=== PATIENT | female | born 1950 | race Two or more races ===

== ENCOUNTER 2018-12-09 16:20 | Emergency (ER) | payer OTHER, MEDICAID ==
[~2018-12-09] VITALS: Ht 30.5 cm; Wt 0.5 kg
[~2018-12-09 16:20] MED LIST: CHOL20004; COLCPOW2 PO; FOLI1TAB6 PO; HYDR200T36 PO; LORA-655 PO; OMEP20TA44 PO
[2018-12-09 18:31] LABS: Basophils # (auto) 0.1 uL; Basophils % (auto) 2.1 % (0.0-2.0); Eosinophils # (auto) 0.1 uL; Eosinophils % (auto) 1.3 % (0.0-7.0); Hematocrit 42.6 % (36.0-46.0); Hemoglobin 14.3 g/dL (12.2-16.2); Lymphocytes # (auto) 1.5 uL; Lymphocytes % (auto) 32.8 % (10.0-50.0); Mean Corpuscular Hemoglobin 30.5 pg (28.0-32.0); Mean Corpuscular Hgb Conc. 33.6 g/dL (32.0-36.0); Mean Corpuscular Volume 90.8 fL (80.0-100.0); Monocytes # (auto) 0.3 uL; Monocytes % (auto) 6.9 % (0.0-12.0); Neutrophils # (auto) 2.5 uL; Neutrophils % (auto) 56.9 % (37.0-80.0); Nucleated Red Blood Cells % 0.1 %; Platelet Count (auto) 101 10^3/uL (140-450); Red Blood Cells 4.69 10^6/uL (4.0-5.20); Red Cell Distribution Width 14.7 % (11.8-14.3); White Blood Cell 4.5 10^3/uL (4.4-10.8)
[2018-12-09 18:36] LABS: Albumin 3.7 g/dL (3.4-5.0); Calcium 8.8 mg/dL (8.5-10.1); Potassium 4.4 mmol/L (3.5-5.1)
[2018-12-09 18:39] LABS: Bilirubin, Total 0.9 mg/dL (0.2-1.0); Total Protein 7.1 g/dL (6.4-8.2)
[2018-12-09] MEDS ORDERED: SODIUM CHLORIDE 0.9% 1,000 ML IV ONE (19:00)
[2018-12-09] MEDS ORDERED: ONDANSETRON HCL 4 MG/2 ML VIAL IV ONE (19:00)
[2018-12-09] MEDS ORDERED: IOHEXOL 300 MG/ML 100ML BOTTLE IJ ONE (19:02)
[2018-12-09 19:24] LABS: Urine Bacteria FEW /hpf (None Seen); Urine Blood Negative /uL (Negative); Urine WBC 6 /hpf (0 - 5)
[2018-12-09 21:32] VITALS: BP 142/80
== END 2018-12-09 21:40 | disposition home or self-care (01) ==
LOC: ER 16:20
DX: N39.0 Urinary tract infection, site not specified (principal); J45.909 Unspecified asthma, uncomplicated; I10 Essential (primary) hypertension; Z87.891 Personal history of nicotine dependence; Z90.710 Acquired absence of both cervix and uterus; Z88.8 Allergy status to other drugs, medicaments and biological substances; Z79.899 Other long term (current) drug therapy
CPT/HCPCS: 36415; 74177; 80053; 81001; 82150; 83605; 83690; 85025; 99284; J7030; Q9967

== ENCOUNTER 2019-08-31 13:49 | Emergency (ER) | payer OTHER, MEDICAID ==
[~2019-08-31] VITALS: Ht 160 cm; Wt 87.1 kg
[~2019-08-31 13:49] MED LIST changes: +ALBUAER3 IN; +ARTISOL13 EACHEYE; +CETI10TA80 PO
[2019-08-31 14:58] LABS: Basophils # (auto) 0 uL; Basophils % (auto) 0.3 % (0.0-2.0); Eosinophils # (auto) 0 uL; Eosinophils % (auto) 0.3 % (0.0-7.0); Hematocrit 45.6 % (36.0-46.0); Hemoglobin 15.2 g/dL (12.2-16.2); Lymphocytes # (auto) 1.8 uL; Lymphocytes % (auto) 26.7 % (10.0-50.0); Mean Corpuscular Hemoglobin 31.1 pg (28.0-32.0); Mean Corpuscular Hgb Conc. 33.3 g/dL (32.0-36.0); Mean Corpuscular Volume 93.2 fL (80.0-100.0); Monocytes # (auto) 0.4 uL; Monocytes % (auto) 5.8 % (0.0-12.0); Neutrophils # (auto) 4.5 uL; Neutrophils % (auto) 66.9 % (37.0-80.0); Platelet Count (auto) 115 10^3/uL (140-450); Red Cell Distribution Width 13.8 % (11.8-14.3); White Blood Cell 6.7 10^3/uL (4.4-10.8)
[2019-08-31 15:17] LABS: Albumin 3.6 g/dL (3.4-5.0); Anion Gap 4 (5-15); Blood Urea Nitrogen 15 mg/dL (7-18); Calcium 9.3 mg/dL (8.5-10.1); Carbon Dioxide 28 mmol/L (21-32); Chloride 107 mmol/L (98-107); Glucose 84 mg/dL (74-106); Potassium 3.8 mmol/L (3.5-5.1); Sodium 139 mmol/L (136-145)
[2019-08-31 15:23] LABS: Alanine Aminotransferase 43 U/L (13-56); Alkaline Phosphatase 97 U/L (45-117); Aspartate Aminotransferase 24 U/L (15-37); BUN/Creatinine Ratio 19.5; GFR African American 96 mL/min; GFR Non-African American 79 mL/min; Total Protein 7.2 g/dL (6.4-8.2)
[2019-08-31 16:19] VITALS: BP 145/75
== END 2019-08-31 16:20 | disposition home or self-care (01) ==
LOC: ER 13:49
DX: J20.9 Acute bronchitis, unspecified (principal); R07.89 Other chest pain; E78.5 Hyperlipidemia, unspecified; I10 Essential (primary) hypertension; Z88.1 Allergy status to other antibiotic agents; Z87.891 Personal history of nicotine dependence; Z90.710 Acquired absence of both cervix and uterus
CPT/HCPCS: 36415; 71046; 80053; 84484; 85025; 93005

== ENCOUNTER 2020-06-01 19:58 | Emergency (ER) | payer OTHER, MEDICAID ==
[~2020-06-01] VITALS: Ht 160 cm; Wt 82.6 kg
[2020-06-01 20:56] LABS: Basophils # (auto) 0 10 ^3/uL (0-0.2); Basophils % (auto) 0.2 % (0.0-2.0); Eosinophils # (auto) 0 10 ^3/uL (0-0.8); Eosinophils % (auto) 0.1 % (0.0-7.0); Hematocrit 43.4 % (36.0-46.0); Hemoglobin 14.7 g/dL (12.2-16.2); Lymphocytes # (auto) 0.7 10 ^3/uL (0.4-5.4); Lymphocytes % (auto) 6.5 % (10.0-50.0); Mean Corpuscular Hemoglobin 31.2 pg (28.0-32.0); Mean Corpuscular Hgb Conc. 33.8 g/dL (32.0-36.0); Mean Corpuscular Volume 92.2 fL (80.0-100.0); Monocytes # (auto) 0.4 10 ^3/uL (0-1.3); Monocytes % (auto) 3.1 % (0.0-12.0); Neutrophils # (auto) 10.3 10 ^3/uL (1.6-8.6); Neutrophils % (auto) 90.1 % (37.0-80.0); Nucleated Red Blood Cells % 0.1 %; Platelet Count (auto) 161 10^3/uL (140-450); Red Blood Cells 4.71 10^6/uL (4.0-5.20); Red Cell Distribution Width 14.6 % (11.8-14.3); White Blood Cell 11.4 10^3/uL (4.4-10.8)
[2020-06-01 21:00] LABS: Urine Bacteria FEW /hpf (None Seen); Urine Blood Negative /uL (Negative); Urine Specific Gravity 1.012 (1.001-1.035); Urine WBC 7 /hpf (0 - 5)
[2020-06-01 21:16] LABS: BUN/Creatinine Ratio 22.4; Potassium 3.8 mmol/L (3.5-5.1)
[2020-06-01 21:20] LABS: Total Protein 7.2 g/dL (6.4-8.2)
[2020-06-02 04:00] VITALS: BP 153/73
[2020-06-02] MEDS ORDERED: HYDROcodone-ACET 5/325MG TAB PO ONE (05:45)
[2020-06-02] MEDS ORDERED: ONDANSETRON ODT 4 MG TAB PO ONE (05:45)
== END 2020-06-02 06:13 | disposition home or self-care (01) ==
LOC: ER 20:00
DX: N39.0 Urinary tract infection, site not specified (principal); J45.909 Unspecified asthma, uncomplicated; E78.5 Hyperlipidemia, unspecified; I10 Essential (primary) hypertension; Z87.891 Personal history of nicotine dependence; Z90.710 Acquired absence of both cervix and uterus; Z88.1 Allergy status to other antibiotic agents
CPT/HCPCS: 36415; 74176; 80053; 81001; 85025; 93005; 99285; Q0162

== ENCOUNTER 2020-06-17 15:15 | Emergency (ER) | payer OTHER, MEDICAID ==
[~2020-06-17] VITALS: Ht 160 cm; Wt 85.7 kg
[2020-06-17 17:28] LABS: Basophils # (auto) 0 10 ^3/uL (0-0.2); Basophils % (auto) 0.6 % (0.0-2.0); Eosinophils # (auto) 0 10 ^3/uL (0-0.8); Eosinophils % (auto) 0.7 % (0.0-7.0); Hematocrit 43.7 % (36.0-46.0); Hemoglobin 14.5 g/dL (12.2-16.2); Lymphocytes # (auto) 1.4 10 ^3/uL (0.4-5.4); Lymphocytes % (auto) 28.4 % (10.0-50.0); Mean Corpuscular Hemoglobin 30.8 pg (28.0-32.0); Mean Corpuscular Hgb Conc. 33.1 g/dL (32.0-36.0); Mean Corpuscular Volume 93.1 fL (80.0-100.0); Monocytes # (auto) 0.3 10 ^3/uL (0-1.3); Monocytes % (auto) 5.8 % (0.0-12.0); Neutrophils # (auto) 3.1 10 ^3/uL (1.6-8.6); Neutrophils % (auto) 64.5 % (37.0-80.0); Nucleated Red Blood Cells % 0.1 %; Platelet Count (auto) 123 10^3/uL (140-450); Red Blood Cells 4.69 10^6/uL (4.0-5.20); Red Cell Distribution Width 14.9 % (11.8-14.3); White Blood Cell 4.8 10^3/uL (4.4-10.8)
[2020-06-17 17:44] LABS: Albumin 3.8 g/dL (3.4-5.0); Anion Gap 3 (5-15); Blood Urea Nitrogen 21 mg/dL (7-18); Calcium 9.2 mg/dL (8.5-10.1); Carbon Dioxide 28 mmol/L (21-32); Chloride 110 mmol/L (98-107); Glucose 85 mg/dL (74-106); Magnesium 2.5 mg/dL (1.6-2.6); Potassium 4.1 mmol/L (3.5-5.1); Sodium 141 mmol/L (136-145)
[2020-06-17 17:58] LABS: Alanine Aminotransferase 44 U/L (13-56); Alkaline Phosphatase 93 U/L (45-117); Aspartate Aminotransferase 26 U/L (15-37); BUN/Creatinine Ratio 25.9; GFR African American 90 mL/min; GFR Non-African American 75 mL/min
[2020-06-17 20:29] VITALS: BP 128/62
[2020-06-17 21:06] LABS: Urine Bacteria NONE SEEN /hpf (None Seen); Urine Blood Negative /uL (Negative); Urine Mucus FEW (None Seen); Urine Specific Gravity 1.019 (1.001-1.035); Urine WBC 4 /hpf (0 - 5)
== END 2020-06-17 22:16 | disposition home or self-care (01) ==
LOC: ER 15:15
DX: R07.89 Other chest pain (principal); I10 Essential (primary) hypertension; N30.00 Acute cystitis without hematuria; F41.9 Anxiety disorder, unspecified; M19.90 Unspecified osteoarthritis, unspecified site; J45.909 Unspecified asthma, uncomplicated; E78.5 Hyperlipidemia, unspecified; Z87.440 Personal history of urinary (tract) infections; Z87.891 Personal history of nicotine dependence; Z90.710 Acquired absence of both cervix and uterus; Z79.899 Other long term (current) drug therapy; Z88.1 Allergy status to other antibiotic agents; Z88.6 Allergy status to analgesic agent
CPT/HCPCS: 36415; 71045; 80053; 81001; 83735; 84484; 85025

== ENCOUNTER 2021-04-17 17:44 | Emergency (ER) | payer OTHER, MEDICAID ==
[~2021-04-17] VITALS: Ht 160 cm; Wt 83.5 kg
[2021-04-17 18:59] VITALS: BP 128/63
[2021-04-17] MEDS ORDERED: TETRACAINE HCL 0.5% OPTH(EYE) SOLN 4ML EACHEYE ONE (21:15)
[2021-04-17] MEDS ORDERED: TETRACAINE HCL 0.5% OPTH(EYE) SOLN 4ML LEFTEYE ONE (21:15)
== END 2021-04-17 22:08 | disposition home or self-care (01) ==
LOC: ER 17:44
DX: H53.15 Visual distortions of shape and size (principal); E78.5 Hyperlipidemia, unspecified; I10 Essential (primary) hypertension; R41.82 Altered mental status, unspecified; Z90.710 Acquired absence of both cervix and uterus; Z87.891 Personal history of nicotine dependence; Z86.73 Personal history of transient ischemic attack (TIA), and cerebral infarction without residual deficits; Z88.5 Allergy status to narcotic agent
CPT/HCPCS: 70450

== ENCOUNTER 2021-06-04 21:36 | Emergency (ER) | payer OTHER, MEDICAID ==
[~2021-06-04] VITALS: Ht 160 cm; Wt 81.6 kg
[~2021-06-04 21:36] MED LIST changes: +CETI10TA2 PO; -CETI10TA80 PO
[2021-06-04 23:08] VITALS: BP 168/89
[2021-06-05] MEDS ORDERED: PERCOT PO (03:08)
[2021-06-05] MEDS ORDERED: ONDA-144 PO (03:08)
== END 2021-06-05 03:58 | disposition home or self-care (01) ==
LOC: ER 21:36
DX: S82.144A Nondisplaced bicondylar fracture of right tibia, initial encounter for closed fracture (principal); I10 Essential (primary) hypertension; J45.909 Unspecified asthma, uncomplicated; M10.9 Gout, unspecified; Z90.710 Acquired absence of both cervix and uterus; Z87.891 Personal history of nicotine dependence; Z79.899 Other long term (current) drug therapy; Z88.8 Allergy status to other drugs, medicaments and biological substances; W18.39XA Other fall on same level, initial encounter; Y93.89 Activity, other specified; Y92.89 Other specified places as the place of occurrence of the external cause; Y99.8 Other external cause status
CPT/HCPCS: 29505; 73700

== ENCOUNTER 2021-09-28 16:23 | Emergency (ER) | payer OTHER, MEDICAID ==
[~2021-09-28] VITALS: Ht 160 cm; Wt 83.0 kg
[~2021-09-28 16:23] MED LIST changes: +ONDA-144 PO; +PERCOT PO
[2021-09-28 16:25] VITALS: BP 189/96
[2021-09-28] MEDS ORDERED: IBUP100S11 GT (20:12)
== END 2021-09-28 20:39 | disposition home or self-care (01) ==
LOC: ER 16:23
DX: S61.213A Laceration without foreign body of left middle finger without damage to nail, initial encounter (principal); I10 Essential (primary) hypertension; J45.909 Unspecified asthma, uncomplicated; M10.9 Gout, unspecified; Z87.891 Personal history of nicotine dependence; Z90.710 Acquired absence of both cervix and uterus; Z79.899 Other long term (current) drug therapy; Z88.8 Allergy status to other drugs, medicaments and biological substances; W23.0XXA Caught, crushed, jammed, or pinched between moving objects, initial encounter; Y93.89 Activity, other specified; Y92.89 Other specified places as the place of occurrence of the external cause; Y99.8 Other external cause status
CPT/HCPCS: 73130

== ENCOUNTER → 2021-10-20 | Outpatient (CLI) | payer OTHER, MEDICAID ==
[~2021-10-20] MED LIST changes: +IBUP100S11 GT
== END | disposition home or self-care (01) ==
LOC: XYW 09:28
PROVIDERS: ATTEND Psychiatry & Neurology Neurology
DX: I08.1 Rheumatic disorders of both mitral and tricuspid valves (principal); G45.9 Transient cerebral ischemic attack, unspecified; I63.9 Cerebral infarction, unspecified; H34.8111 Central retinal vein occlusion, right eye, with retinal neovascularization
CPT/HCPCS: 93306

== ENCOUNTER → 2024-11-27 | Outpatient (CLI) | payer OTHER, MEDICAID ==
[~2024-11-27] MED LIST changes: +FOLI-119 PO; -FOLI1TAB6 PO
[2024-11-27 12:42] LABS: Urine Bacteria FEW /hpf (None Seen); Urine Blood Negative /uL (Negative); Urine Clarity Clear (Clear); Urine Color Light-Yellow (Yellow); Urine Protein, UAD Negative (Negative); Urine Squamous Epithelial Cell FEW /hpf (<5); Urine Urobilinogen Normal (Negative); Urine WBC 1 /HPF (0-5)
== END | disposition home or self-care (01) ==
LOC: LAB 11:44
PROVIDERS: ATTEND Urology
DX: R33.9 Retention of urine, unspecified (principal)
CPT/HCPCS: 81001; 87086

== ENCOUNTER 2025-07-02 09:50 | Inpatient (IN) | payer MEDICARE, MEDICAID ==
[~2025-07-02] VITALS: Ht 160 cm; Wt 86.2 kg
[2025-07-02 10:18] LABS: Hematocrit 41.1 % (36.0-46.0); Hemoglobin 13.6 g/dL (12.2-16.2); Mean Corpuscular Hemoglobin 30.6 pg (28.0-32.0); Mean Corpuscular Volume 92.3 fL (80.0-100.0); Nucleated Red Blood Cells % 0.0 %
--- NOTE | 2025-07-02 10:19 | ED.PDOC ---
HPI Comments 74 year old female with PMHx anxiety, arthritis, asthma, Gout, HLD, HTN, presents to the ED with a chief complaint of chest pain onset today around 01:00. Patient states she began experiencing LT sided chest pain, described as a pressure sensation, rates pain 6/10, as well as shortness of breath. She did not take HTN medication this morning. Denies fever, chills, nausea, vomiting, diarrhea, headache, dizziness, dysuria, hematuria, numbness/tingling, weakness. No other symptoms or modifying factors present at this time. Chief Complaint: Chest Pain Time Seen by MD: 10:10 Primary Care Provider: Valeria Reviewed Notes: Medications, Allergies Allergies: Coded Allergies: Tramadol (Verified Allergy, Unknown, 01/25/17) Home Meds Active Scripts Ibuprofen (Motrin) 100 Mg/5 Ml Ud, 400 MG GT TID PRN for 7 Days, #30 UNIT Prov:ANGELINA ELLER MD 09/28/21 Ondansetron (Zofran) 4 Mg Tab, 4 MG PO BID for 5 Days, #10 MG Prov:DOMI HILL MD 06/05/21 Oxycodone W/ Acetaminophen (Percocet 5/325MG) 1 Tab Tb, 1 TAB PO BID, #10 TAB Prov:DOMI HILL MD 06/05/21 Reported Medications Artificial Tear Solution (ARTIFICIAL TEARS) Tears Brandi, 1 DROP EACHEYE QID, #30 ML 5 Refills 02/18/19 Albuterol Sulfate (VENTOLIN MDI) 90 Mcg Ih, 90 MCG IN 02/18/19 Cetirizine Hcl (Kls Aller-Marija) 10 Mg Tab, 5 MG PO DAILY, TAB 02/18/19 Lorazepam (Ativan) 0.5 Mg Tab, 1 TAB PO DAILY, #30 TAB 01/25/17 Colchicine (Colchicine) Pow, 0.6 MG PO DAILY, MG 01/25/17 Folic Acid (Folic Acid) 1 Mg Tab, 1 MG PO DAILY, #90 08/10/14 Cholecalciferol (Vitamin D) 2,000 Unit Tab, #60 08/10/14 Omeprazole ([facility]vs Omeprazole) 20 Mg Tab, 20 MG PO DAILY, #30 08/10/14 Hydroxychloroquine Sulfate (Hydroxychloroquine Sulfat) 200 Mg Tab, 200 MG PO BID, #60 08/10/14 Information Source: Patient Mode of Arrival: Ambulatory Severity: Moderate Timing: Hours Duration: Since onset Prehospital treatment: None Location: Chest (L) Radiation: No Radiation Quality: Pressure Onset: At Rest Cardiac Risk Factors: Hyperlipidemia, HTN PE Risk Factors: None History of: None Associated Signs and Symptoms: SOB Past Medical History PAST MEDICAL HISTORY: Anxiety, Arthritis, Asthma, Cancer, Gout, High Lipids, HTN, UTI'S Surgical History: Hysterectomy Surgical History (Other): RT knee surgery SHOWER DOORS AND PANELS FABRICATOR History: No Pertinent SHOWER DOORS AND PANELS FABRICATOR History Family History Family History: Reviewed,noncontributory to illness, Family hx of DM, Family hx of Cancer Social History Smoker: Quit Greater Than 1 Year Alcohol: Occasionally Drugs: Denies Drug Use Lives In: Home Constitutional: denies: chills, diaphoresis, fatigue, fever, malaise, sweats, weakness, others EENTM: denies: blurred vision, double vision, ear bleeding, ear discharge, ear drainage, ear pain, ear ringing, eye pain, eye redness, hearing loss, mouth pain, mouth swelling, nasal discharge, nose bleeding, nose congestion, nose pain, photophobia, tearing, throat pain, throat swelling, voice changes, others Respiratory: reports: shortness of breath; denies: cough, hemoptysis, orthopnea, SOB at rest, SOB with excertion, stridor, wheezing, others Cardiovascular: reports: chest pain; denies: dizzy spells, diaphoresis, Dyspnea on exertion, edema, irregular heart beat, left arm pain, lightheadedness, palpitations, PND, syncope, others Gastrointestinal: denies: abdomen distended, abdominal pain, blood streaked bowels, constipated, diarrhea, dysphagia, difficulty swallowing, hematemesis, melena, nausea, poor appetite, poor fluid intake, rectal bleeding, rectal pain, vomiting, others Genitourinary: denies: abnormal vagina bleeding, burning, dyspareunia, dysuria, flank pain, frequency, hematuria, incontinence, pain, , vagina discharge, urgency, others Neurological: denies: dizziness, fainting, headache, left sided numbness, left sided weakness, numbness, paresthesia, pre-existing deficit, right sided numbness, right sided weakness, seizure, speech problems, tingling, tremors, weakness, others Musculoskeletal: denies: back pain, gout, joint pain, joint swelling, muscle pain, muscle stiffness, neck pain, others Integumetry: denies: bruises, change in color, change in hair/nails, dryness, laceration, lesions, lumps, rash, wounds, others Allergic/Immunocompromised: denies: Difficulty Healing, Frequent Infections, Hives, Itching, others Hematologic/Lymphatic: denies: anemia, blood clots, easy bleeding, easy bruising, swollen glands, others Endocrine: denies: excessive hunger, excessive sweating, excessive thirst, excessive urination, flushing, intolerance to cold, intolerance to heat, unexplained weight gain, unexplained weight loss, others Psychiatric: denies: anxiety, bipolar disorder, depression, hopeless, panic disorder, schizophrenia, sleepless, suicidal, others All Other Systems: Reviewed and Negative Physical Exam General Appearance: Moderate Distress HEENT: Normal ENT Inspection, Pharynx Normal, TMs Normal Neck: Full Range of Motion, Non-Tender, Normal, Normal Inspection Respiratory: Chest Non-Tender, Lungs Clear, No Accessory Muscle Use, No Respiratory Distress, Normal Breath Sounds Cardiovascular: No Edema, No JVD, No Murmur, No Gallop, Normal Peripheral Pulses, Regular Rate/Rhythm Breast Exam: Deferred Gastrointestinal: No Organomegaly, Non Tender, No Pulsatile Mass, Normal Bowel Sounds, Soft Genitalia: Deferred Pelvic: Deferred Rectal: Deferred Extremities: No calf tenderness, Normal capillary refill, Normal inspection, Normal range of motion, Non-tender, No pedal edema Musculoskeletal : Apperance: Normal Neurologic: Alert, rn travel II-XII nml as Tested, No Motor Deficits, Normal Affect, Normal Mood, No Sensory Deficits Cerebellar Function: Normal Reflexes: Normal Skin: Dry, Normal Color, Warm Lymphatic: No Adenopathy EKG EKG : Pulse Rate (adult): 86 [place]: Normal Cardiac Rhythm: NSR Block: None ST: Nonsp Was a procedure done? Was a procedure done?: No CP Differential Dx Differential Diagnosis: Angina, MO, WPW Differential Diagnosis: CHF X-Ray, Labs, Meds, VS Vital Signs Date Time Temp Pulse Resp B/P (MAP) Pulse Ox O2 Delivery O2 Flow Rate FiO2 07/02/25 11:34 58 07/02/25 11:34 97.5 58 18 176/71 (106) 98 97.5 07/02/25 09:57 98.1 59 16 158/53 98 98.1 07/02/25 09:57 64 Lab Test 07/02/25 11:19 07/02/25 10:04 Range/Units Troponin I High Sensitivity 7 6 </=34 ng/L White Blood Count 3.0 L 4.4-10.8 10^3/uL Red Blood Count 4.45 4.0-5.20 10^6/uL Hemoglobin 13.6 12.2-16.2 g/dL Hematocrit 41.1 36.0-46.0 % Mean Corpuscular Volume 92.3 80.0-100.0 fL Mean Corpuscular Hemoglobin 30.6 28.0-32.0 pg Mean Corpuscular Hemoglobin Concent 33.2 32.0-36.0 g/dL Red Cell Distribution Width 15.0 H 11.8-14.3 % Platelet Count 108 L 140-450 10^3/uL Mean Platelet Volume 8.6 6.9-10.8 fL Neutrophils (%) (Auto) 52.1 37.0-80.0 % Lymphocytes (%) (Auto) 37.2 10.0-50.0 % Monocytes (%) (Auto) 8.4 0.0-12.0 % Eosinophils (%) (Auto) 1.5 0.0-7.0 % Basophils (%) (Auto) 0.8 0.0-2.0 % Neutrophils # (Auto) 1.6 1.6-8.6 10 ^3/uL Lymphocytes # (Auto) 1.1 0.4-5.4 10 ^3/uL Monocytes # (Auto) 0.3 0-1.3 10 ^3/uL Eosinophils # (Auto) 0 0-0.8 10 ^3/uL Basophils # (Auto) 0 0-0.2 10 ^3/uL Nucleated Red Blood Cells 0.0 % Sodium Level 141 136-145 mmol/L Potassium Level 4.8 3.5-5.1 mmol/L Chloride Level 106 98-107 mmol/L Carbon Dioxide Level 25 20-31 mmol/L Anion Gap 10 5-15 Blood Urea Nitrogen 11 9-23 mg/dL Creatinine 0.83 0.550-1.02 mg/dL Glomerular Filtration Rate Calc 74 >90 mL/min BUN/Creatinine Ratio 13.3 10.0-20.0 Serum Glucose 113 H 74-106 mg/dL Calcium Level 9.7 8.7-10.4 mg/dL Current Medications Medications (Trade) Dose Ordered Sig/Trena Route Start Time Stop Time Status Last Admin Aspirin 162 mg ONCE ONCE PO 07/02/25 10:30 07/02/25 10:31 DC 07/02/25 11:38 IMPRESSION: No acute cardiopulmonary disease. Hep-Lock was established The patient was given aspirin here in the emergency department's The CBC is within normal limits The chemistry panel is within normal limits The 1st troponin level is negative The 2nd troponin level is negative We are getting a cardiology consult in the patient is being admitted with a diagnosis of acute myocardial ischemia Images Reviewed?: Images reviewed and evaluated by me Time of 1ST Reevaluation: 10:40 Reevaluation 1ST: Unchanged Patient Education/Counseling: Diagnosis, Treatment, Prognosis Family Education/Counseling: No Family Present SEPSIS Sepsis Screen Date sepsis recognized/suspect: Jul 02, 2025 Time Sepsis recognized/suspect: 956 Recent Procedure: No On Antibiotic Therapy: No Respiratory Rate >20: No Heart Rate >90: No Temp<36 C (96.8 F) or >38.3 C: No SBP <90 or MAP <65 mmHG: No New Acute Mental Status Change: No Is the patient on CPAP, BIPAP,: No Physician Orders Troponin-I Hs (07/02/25 12:54) Electrocardigram (07/02/25 10:54) Electrocardigram (07/02/25 12:54) Heplock Iv (07/02/25 10:16) Chest Two Views Routine (07/02/25 10:16) Vital Signs Date Time Temp Pulse Resp B/P (MAP) Pulse Ox O2 Delivery O2 Flow Rate FiO2 07/02/25 11:34 58 07/02/25 11:34 97.5 58 18 176/71 (106) 98 97.5 07/02/25 09:57 98.1 59 16 158/53 98 98.1 07/02/25 09:57 64 Laboratory Tests Test 07/02/25 10:04 White Blood Count 3.0 10^3/uL (4.4-10.8) L Medications Medications Dose Ordered Sig/Trena Route Start Time Stop Time Status Last Admin Dose Admin Aspirin 162 mg ONCE ONCE PO 07/02/25 10:30 07/02/25 10:31 DC 07/02/25 11:38 Departure 1 Departure Time of Disposition: 12:04 Impression: Primary Impression: Acute chest pain Additional Impression: Acute myocardial ischemia Disposition: 09 ADMITTED INPATIENT Admit to: Tele Condition: Fair Critical Care Note Critical Care Time?: No Stability Stability form required: Yes Unstable for transfer: Telemetry monitoring (Telemetry monitoring required), ED Physician Assesment (Clinical assesment) Heart Score Heart Score: Heart Score Response (Comments) Value History N/A 0 EKG N/A 0 Age N/A 0 Risk Factors N/A 0 Troponin N/A 0 Total 0 I personally scribed for ROSEMARY BOX MD ([email or web address]) on 07/02/25 at 10:19. Electronically submitted by Hanny Ford ([email or web address]). I personally scribed for ROSEMARY BOX MD ([email or web address]) on 07/02/25 at 11:12. Electronically submitted by Hanny Ford ([email or web address]). ROSEMARY BOX MD Jul 02, 2025 10:19
[2025-07-02 10:24] LABS: Chloride 106 mmol/L (98-107); Potassium 4.8 mmol/L (3.5-5.1); Sodium 141 mmol/L (136-145)
[2025-07-02 10:25] LABS: Anion Gap 10 (5-15); Calcium 9.7 mg/dL (8.7-10.4); Carbon Dioxide 25 mmol/L (20-31)
[2025-07-02 10:30] LABS: BUN/Creatinine Ratio 13.3 (10.0-20.0); Blood Urea Nitrogen 11 mg/dL (9-23)
[2025-07-02 10:31] LABS: Glucose 113 mg/dL (74-106)
--- NOTE | 2025-07-02 10:32 | ECG ---
[facility] Test Date: 2025-07-02 Test Time: 09:57:52 Pat Name: MAISHA ABDULLAHI Department: ED Room: [address] [place] [address] Gender: F Cone Operator: PHILLIP : 1950 Requested By: ROSEMARY BOX Order Number: [id number] Reading MD: Dagoberto Burton Measurements Intervals [place] Rate: 64 P: 74 [place]: 161 QRS: 0 QRSD: 95 T: 75 QT: 439 QTc: 453 Interpretive Statements Sinus rhythm Low voltage, precordial leads Borderline T wave abnormalities Electronically Signed On 07-02-2025 18:02:03 PST by Dagoberto Burton Please click the below link to view image of tracing.
--- NOTE | 2025-07-02 10:53 | DVH ---
XY CHEST TWO VIEWS ROUTINE CLINICAL HISTORY: CP COMPARISON: None TECHNIQUE: Frontal and lateral view of the chest was obtained FINDINGS: Lines and Tubes: None Lungs: No focal consolidation. Low lung volumes. Pleura: No effusion. No pneumothorax. Cardiomediastinal contours: Unremarkable. Atherosclerotic vascular calcifications of the thoracic aorta are noted. Bones: No acute osseous abnormality. IMPRESSION: No acute cardiopulmonary disease.
[2025-07-02] MEDS: hydrALAZINE HCL 20 MG/ML VL IV ONE (12:52)
[2025-07-02] MEDS ORDERED: ONDANSETRON HCL 4 MG/2 ML VIAL IV PRN (14:45)
[2025-07-02] MEDS ORDERED: NITROGLYCERIN 0.4 MG SL TAB SL PRN (14:45)
[2025-07-02] MEDS ORDERED: MORPHINE SULFATE INJ 2 MG/ml SYRG IV PRN ×2 (14:45)
[2025-07-02] MEDS ORDERED: ATORVASTATIN 20 MG TAB PO ONE (14:45)
--- NOTE | 2025-07-02 14:45 | ECG ---
[facility] Test Date: 2025-07-02 Test Time: 14:44:31 Pat Name: MAISHA ABDULLAHI Department: ED Room: [address] [place] [address] Gender: F Green Feed Attendant: ANNA : 1950 Requested By: ROSEMARY BOX Order Number: [id number] Reading MD: Dagoberto Burton Measurements Intervals [place] Rate: 65 P: 10 [place]: 119 QRS: 4 QRSD: 84 T: 42 QT: 399 QTc: 415 Interpretive Statements Sinus rhythm Borderline short AL interval Borderline T abnormalities, anterior leads Electronically Signed On 07-02-2025 18:02:21 PST by Dagoberto Burton Please click the below link to view image of tracing.
--- NOTE | 2025-07-02 14:48 | DVHHPRES ---
History of Present Illness Resident Creating Document: RD [facility]DLE[place] RESIDENT History of Present Illness Betty Salcedo is a 74-year-old female patient who presents to the ED with chief complaint of tightness in retrosternal chest pain which started at 10:00 p.m. on the day of her admission, worsens with breathing, palpation and lying flat, intensity 10/10 for 10 minutes, resolved spontaneously in functional class four. Patient has had these symptoms are different from her heartburn occasional symptoms. Denies any other associated symptoms. Past medical history: Hypertension, lupus, Sjogren, rheumatoid arthritis, osteoarthritis, essential tremor, two strokes in 2020, diverticulosis , osteoporosis, benign right breast tumor, completed stress test in 2021 due to palpitation (no diagnosis of arrhythmia) Surgical history: Right knee replacement, hysterectomy due to uterine fibroids, right lumpectomy Family history: Mother had breast cancer. Social history: Lives in [place] alone (next of kin sister). Denies tobacco, alcohol and other drug abuse Allergies: Tramadol, Home medication: Aspirin, artificial tear drops, cetirizine, colchicine, folic acid, cholecalciferol, omeprazole, hydrocodone Patient seen and examined at bedside. Currently has no new complaints. Palpated chest and elicited extreme pain. Past Medical History Per HPI Past Surgical History Per HPI Family History Per HPI Past Social History Per HPI Review of Systems Review of Systems Per HPI Allergies: Coded Allergies: Tramadol (Verified Allergy, Unknown, 01/25/17) Exam Vital Signs Vital Signs Date Time Temp Pulse Resp B/P (MAP) Pulse Ox O2 Delivery O2 Flow Rate FiO2 07/02/25 14:23 97.7 81 16 155/72 (99) 97 97.7 Exam Patient lying in bed, in no acute distress General: Lucid, afebrile, mucosae are moist Cardiovascular: Normal S1 and S2. No murmurs, gallops or rubs Respiratory: Normal ventilation mechanics. Clear lung sounds on auscultation Abdomen: Soft, nontender, no organomegaly, normal bowel sounds MSK/skin: Mobilizes 4 limbs. Skin is dry and warm. Presents tenderness on palpation sternum (10/10 pain) Neurological: Oriented in 3 spheres. No motor no sensitive deficits. Pupils are isocoric and reactive Labs/Xrays Labs Test 07/02/25 13:06 07/02/25 10:04 Range/Units Troponin I High Sensitivity 7 </=34 ng/L White Blood Count 3.0 L 4.4-10.8 10^3/uL Red Blood Count 4.45 4.0-5.20 10^6/uL Hemoglobin 13.6 12.2-16.2 g/dL Hematocrit 41.1 36.0-46.0 % Mean Corpuscular Volume 92.3 80.0-100.0 fL Mean Corpuscular Hemoglobin 30.6 28.0-32.0 pg Mean Corpuscular Hemoglobin Concent 33.2 32.0-36.0 g/dL Red Cell Distribution Width 15.0 H 11.8-14.3 % Platelet Count 108 L 140-450 10^3/uL Mean Platelet Volume 8.6 6.9-10.8 fL Neutrophils (%) (Auto) 52.1 37.0-80.0 % Lymphocytes (%) (Auto) 37.2 10.0-50.0 % Monocytes (%) (Auto) 8.4 0.0-12.0 % Eosinophils (%) (Auto) 1.5 0.0-7.0 % Basophils (%) (Auto) 0.8 0.0-2.0 % Neutrophils # (Auto) 1.6 1.6-8.6 10 ^3/uL Lymphocytes # (Auto) 1.1 0.4-5.4 10 ^3/uL Monocytes # (Auto) 0.3 0-1.3 10 ^3/uL Eosinophils # (Auto) 0 0-0.8 10 ^3/uL Basophils # (Auto) 0 0-0.2 10 ^3/uL Nucleated Red Blood Cells 0.0 % Sodium Level 141 136-145 mmol/L Potassium Level 4.8 3.5-5.1 mmol/L Chloride Level 106 98-107 mmol/L Carbon Dioxide Level 25 20-31 mmol/L Anion Gap 10 5-15 Blood Urea Nitrogen 11 9-23 mg/dL Creatinine 0.83 0.550-1.02 mg/dL Glomerular Filtration Rate Calc 74 >90 mL/min BUN/Creatinine Ratio 13.3 10.0-20.0 Serum Glucose 113 H 74-106 mg/dL Calcium Level 9.7 8.7-10.4 mg/dL SEPSIS Sepsis Screen Date sepsis recognized/suspect: Jul 02, 2025 Time Sepsis recognized/suspect: 0957 Recent Procedure: No On Antibiotic Therapy: No Respiratory Rate >20: No Heart Rate >90: No Temp<36 C (96.8 F) or >38.3 C: No SBP <90 or MAP <65 mmHG: No New Acute Mental Status Change: No Is the patient on CPAP, BIPAP,: No Physician Orders Electrocardigram (07/02/25 12:54) Heplock Iv (07/02/25 10:16) Chest Two Views Routine (07/02/25 10:16) Admit (07/02/25 14:45) Code Status (07/02/25 14:45) Acetaminophen Tablet (Tylenol Tablet) (07/02/25 14:45) Ondansetron Hcl (Zofran) (07/02/25 14:45) Complete Blood Count (07/03/25 04:00) Comprehensive Metabolic Panel (07/03/25 04:00) Cardiac Diet-2gna,Lofat,Lochol (07/02/25 Dinner) Echo 2d Mode Cardiac Dop (07/02/25 14:45) Morphine Sulfate Injection (07/02/25 14:45) Lovenox 40mg (07/03/25 10:00) Nitroglycerin Sublingual (Ntrostat Subli (07/02/25 14:45) Morphine Sulfate Injection (07/02/25 14:45) Oxygen By Nasal Cannula (07/02/25 14:45) Stat Ekg For Chest Pain (07/02/25 14:45) Notify Md Of Changes From Base (07/02/25 14:45) Senior Telecommunications Specialist For 24 Hours (07/02/25 14:45) Emergency Dysrhythmia Protocol (07/02/25 14:45) Rhythm Strips Once Every Shift (07/02/25 14:45) Aspirin Tablet (07/03/25 10:00) Atorvastatin (Lipitor) (07/02/25 22:00) Atorvastatin (Lipitor) (07/02/25 14:45) Vital Signs Date Time Temp Pulse Resp B/P (MAP) Pulse Ox O2 Delivery O2 Flow Rate FiO2 07/02/25 14:23 97.7 81 16 155/72 (99) 97 97.7 07/02/25 12:52 176/71 07/02/25 12:05 86 07/02/25 11:34 58 07/02/25 11:34 97.5 58 18 176/71 (106) 98 97.5 07/02/25 09:57 98.1 59 16 158/53 98 98.1 07/02/25 09:57 64 Laboratory Tests Test 07/02/25 10:04 White Blood Count 3.0 10^3/uL (4.4-10.8) L Medications Medications Dose Ordered Sig/Trena Route Start Time Stop Time Status Last Admin Dose Admin Aspirin 162 mg ONCE ONCE PO 07/02/25 10:30 07/02/25 10:31 DC 07/02/25 11:38 162 MG Hydralazine HCl 10 mg ONCE ONCE IV 07/02/25 12:30 07/02/25 12:31 DC 07/02/25 12:52 10 MG Assessment/Plan Assessment/Plan ASSESSMENT Rule out acute coronary syndrome Probable costochondritis Ruled out rib fracture Thrombocytopenia Leukopenia Lupus Sjogren Rheumatoid arthritis Osteoarthritis History of two CVAs Diverticulosis Essential tremor Osteoporosis History of benign right breast mass status post lumpectomy PLAN Troponin x3 negative. EKG shows sinus rhythm with no ST-elevation (low-voltage precordial leads). Pain is noncardiac. Ordered echocardiogram Ordered x-ray of ribs to rule out rib fracture Continue hydroxychloroquine Bicytopenia (leukopenia and thrombocytopenia) could be secondary to rheumatologic medication Goals of care discussed with patient for over 18 minutes: Full code status Discussed plan with Dr. Becerra, patient and nurses: Patient admitted to telemetry for further evaluation. Ordered complementary workup to rule out acute coronary syndrome (echocardiogram. Chest pain impresses noncardiac in etiology, ruled out costochondritis and rib fracture. Plan discussed with: Patient, Other (Nurses) My Orders Orders - RD MIDDLE[facility] RESIDENT Procedure Category Date Status Time Admit ADMIT 07/02/25 Transmitted 14:45 Code Status CODE 07/02/25 Transmitted 14:45 Acetaminophen Tablet PHA 07/02/25 Transmitted (Tylenol Tablet) 14:45 Ondansetron Hcl PHA 07/02/25 Transmitted (Zofran) 14:45 Complete Blood Count LAB 07/03/25 Verified 04:00 Comprehensive LAB 07/03/25 Verified Metabolic Panel 04:00 Cardiac DIET 07/02/25 Transmitted Diet-2gna,Lofat,Lochol Dinner Echo 2d Mode Cardiac US 07/02/25 Transmitted DOP 14:45 Morphine Sulfate PHA 07/02/25 Transmitted Injection 14:45 Lovenox 40mg PHA 07/03/25 Transmitted 10:[address] [facility] 07/02/25 Transmitted Sublingual (Ntrostat 14:45 Morphine Sulfate PHA 07/02/25 Transmitted Injection 14:45 Oxygen By Nasal RT 07/02/25 Transmitted Cannula 14:45 Stat Ekg For Chest [facility] 07/02/25 Transmitted Pain 14:45 Notify Of Changes [facility] 07/02/25 Transmitted From Base 14:45 Senior Telecommunications Specialist For [facility] 07/02/25 Transmitted 24 Hours 14:45 Emergency Dysrhythmia [facility] 07/02/25 Transmitted Protocol 14:45 Rhythm Strips Once [facility] 07/02/25 Transmitted Every Shift 14:[address] [facility] 07/03/25 Transmitted 10:00 Atorvastatin (Lipitor) [facility] 07/02/25 Transmitted 22:00 Atorvastatin (Lipitor) [facility] 07/02/25 Transmitted 14:45 Date of Service: Jul 02, 2025 Billing Provider: RUIZ BECERRA DO Common Visit Codes: 28313-[id number] INP/OBS CARE (HIGH) Secondary Visit Codes: [id number] CARE PLAN [address] [facility]DLE[place] RESIDENT Jul 02, 2025 14:48
[2025-07-02] MEDS ORDERED: IBUPROFEN 100MG/5ML ORAL SUSP 100 MG/5 ML UD GT PRN (15:00)
[2025-07-02 15:03] VITALS: BP 155/72; PULSE 81; RESP 16; TEMP 97.7; O2SAT 97
[2025-07-02 15:22] LABS: Alanine Aminotransferase 28.0 U/L (7-40); Albumin 4.0 g/dL (3.2-4.8); Total Protein 6.5 g/dL (5.7-8.2)
[2025-07-02 15:22] LABS: Magnesium 2.0 mg/dL (1.6-2.6); Triglycerides 86.0 mg/dL (< 150)
[2025-07-02 15:23] LABS: Alkaline Phosphatase 121.0 U/L (46-116); Bilirubin, Direct 0.2 mg/dL (<0.3); Bilirubin, Total 0.7 mg/dL (0.2-1.0)
[2025-07-02 15:24] LABS: Cholesterol 213.0 mg/dL (< 200); HDL Cholesterol 93.0 mg/dL (40-59)
[2025-07-02 15:26] LABS: INR 0.97 (0.9-1.15); Partial Thromboplastin Time 26.9 SEC (24.5-34.5); Prothrombin Time 10.3 sec (9.3-11.8)
--- NOTE | 2025-07-02 16:11 | ECG ---
[facility] Test Date: 2025-07-02 Test Time: 16:10:25 Pat Name: MAISHA ABDULLAHI Department: ED Room: [address] [place] [address] Gender: F Big Data Developer: arian : 1950 Requested By: ROSEMARY BOX Order Number: [id number] Reading MD: Dagoberto Burton Measurements Intervals [place] Rate: 73 P: 72 [place]: 159 QRS: -7 QRSD: 86 T: 30 QT: 394 QTc: 435 Interpretive Statements Sinus rhythm Low voltage, precordial leads Borderline repolarization abnormality Electronically Signed On 07-02-2025 18:02:36 PST by Dagoberto Burton Please click the below link to view image of tracing.
[2025-07-02] MEDS ORDERED: ALBUTEROL SULF HFA 90MCG INH 200DOSE IN SCH (18:00)
[2025-07-02] MEDS: ARTIFICIAL TEARS 15ml EACHEYE SCH (18:00)
[2025-07-02 18:12] VITALS: BP 159/54; PULSE 68; RESP 18; TEMP 98; O2SAT 97
[2025-07-02 18:38] VITALS: PULSE 59; RESP 12; O2SAT 96
[2025-07-02] MEDS: ALBUTEROL SULF 2.5 MG/0.5ML(0.5%) NEB SOLN NEB SCH (18:38)
[2025-07-02 18:43] VITALS: PULSE 60; RESP 12; O2SAT 100
[2025-07-02] MEDS ORDERED: COLCPOW2 PO (18:50)
[2025-07-02] MEDS ORDERED: ASPI-543 PO (18:50)
[2025-07-02] MEDS ORDERED: CHOL20007 PO (18:50)
[2025-07-02] MEDS ORDERED: BENA10TA93 PO (18:51)
[2025-07-02] MEDS ORDERED: PRIM50TA5 PO (18:51)
[2025-07-02 20:00] VITALS: PULSE 87; PULSE 93; RESP 14; O2SAT 100
[2025-07-02 21:00] VITALS: BP 161/85; PULSE 87; RESP 14; TEMP 98.6; O2SAT 100
[2025-07-02] MEDS: ACETAMINOPHEN 325 MG TAB PO PRN (21:13)
[2025-07-02] MEDS: ATORVASTATIN 20 MG TAB PO SCH (21:14)
[2025-07-02] MEDS ORDERED: PATIENTS OWN MEDICATION (Ondansetron (Zofran) 4 MG) PO SCH (22:00)
[2025-07-02] MEDS: BENAZEPRIL HCL 10 MG TAB PO ONE (22:57)
[2025-07-03] VITALS (15 sets, daily range): BP systolic 114–146; BP diastolic 64–81; PULSE 54–96; RESP 14–18; TEMP 97.4–98.2; O2SAT 93–100
[2025-07-03 06:52] LABS: Hematocrit 39.5 % (36.0-46.0); Hemoglobin 13.3 g/dL (12.2-16.2); Mean Corpuscular Hemoglobin 30.6 pg (28.0-32.0); Mean Corpuscular Volume 91.0 fL (80.0-100.0); Nucleated Red Blood Cells % 0.1 %
[2025-07-03 07:04] LABS: Alanine Aminotransferase 27 U/L (7-40); Albumin 3.9 g/dL (3.2-4.8); Alkaline Phosphatase 113 U/L (46-116); Anion Gap 10 (5-15); BUN/Creatinine Ratio 15.7 (10.0-20.0); Bilirubin, Total 0.9 mg/dL (0.2-1.0); Blood Urea Nitrogen 13 mg/dL (9-23); Calcium 9.4 mg/dL (8.7-10.4); Carbon Dioxide 25 mmol/L (20-31); Chloride 107 mmol/L (98-107); Glucose 81 mg/dL (74-106); Potassium 4.5 mmol/L (3.5-5.1); Sodium 142 mmol/L (136-145); Total Protein 6.1 g/dL (5.7-8.2)
--- NOTE | 2025-07-03 09:26 | DVH ---
EXAMINATION: XY RIBS BILATERAL INDICATION: Rule out rib fracture COMPARISON: XY CHEST TWO VIEWS ROUTINE on DOS: 07/02/25 TECHNIQUE: Frontal view of the chest and 3 views of the left ribs history FINDINGS: No focal consolidation, pleural effusion or significant pneumothorax. Normal cardiomediastinal silhouette. No displaced left rib fracture. IMPRESSION: No acute cardiopulmonary disease. No displaced left rib fracture.
[2025-07-03] MEDS: ENOXAPARIN SOD 40 MG/0.4 ML SYRINGE SC SCH (11:23)
[2025-07-03] MEDS: PANTOPRAZOLE 40 MG TAB PO SCH (11:24)
[2025-07-03] MEDS: FOLIC ACID 1 MG TAB PO SCH (11:24)
--- NOTE | 2025-07-03 16:38 | DVHDS2 ---
Discharge Summary Date of Admission Jul 02, 2025 at 14:45 Date of Discharge: Jul 03, 2025 Labs/Diagnostic Data: Laboratory Results Test 07/03/25 05:35 07/02/25 13:06 07/02/25 11:19 07/02/25 10:04 White Blood Count 3.7 10^3/uL (4.4-10.8) Red Blood Count 4.34 10^6/uL (4.0-5.20) Hemoglobin 13.3 g/dL (12.2-16.2) Hematocrit 39.5 % (36.0-46.0) Mean Corpuscular Volume 91.0 fL (80.0-100.0) Mean Corpuscular Hemoglobin 30.6 pg (28.0-32.0) Mean Corpuscular Hemoglobin Concent 33.6 g/dL (32.0-36.0) Red Cell Distribution Width 14.9 % (11.8-14.3) Platelet Count 111 10^3/uL (140-450) Mean Platelet Volume 9.4 fL (6.9-10.8) Neutrophils (%) (Auto) 48.2 % (37.0-80.0) Lymphocytes (%) (Auto) 38.5 % (10.0-50.0) Monocytes (%) (Auto) 11.5 % (0.0-12.0) Eosinophils (%) (Auto) 1.3 % (0.0-7.0) Basophils (%) (Auto) 0.5 % (0.0-2.0) Neutrophils # (Auto) 1.8 10 ^3/uL (1.6-8.6) Lymphocytes # (Auto) 1.4 10 ^3/uL (0.4-5.4) Monocytes # (Auto) 0.4 10 ^3/uL (0-1.3) Eosinophils # (Auto) 0 10 ^3/uL (0-0.8) Basophils # (Auto) 0 10 ^3/uL (0-0.2) Nucleated Red Blood Cells 0.1 % Sodium Level 142 mmol/L (136-145) Potassium Level 4.5 mmol/L (3.5-5.1) Chloride Level 107 mmol/L (98-107) Carbon Dioxide Level 25 mmol/L (20-31) Anion Gap 10 (5-15) Blood Urea Nitrogen 13 mg/dL (9-23) Creatinine 0.83 mg/dL (0.550-1.02) Glomerular Filtration Rate Calc 74 mL/min (>90) BUN/Creatinine Ratio 15.7 (10.0-20.0) Serum Glucose 81 mg/dL (74-106) Calcium Level 9.4 mg/dL (8.7-10.4) Total Bilirubin 0.9 mg/dL (0.2-1.0) Aspartate Amino Transferase (AST) 26 U/L (13-40) Alanine Aminotransferase (ALT) 27 U/L (7-40) Alkaline Phosphatase 113 U/L (46-116) Total Protein 6.1 g/dL (5.7-8.2) Albumin 3.9 g/dL (3.2-4.8) Prothrombin Time 10.3 sec (9.3-11.8) Prothrombin Time INR 0.97 (0.9-1.15) Activated Partial Thromboplast Time 26.9 SEC (24.5-34.5) Hemoglobin A1c 5.4 % A1C (<5.7) Troponin I High Sensitivity 7 ng/L (</=34) Vitamin B12 Level 501 pg/mL (211-911) Vitamin D 25-Hydroxy 52.7 ng/mL (30.0-100) Phosphorus Level 3.4 mg/dL (2.4-5.1) Magnesium Level 2.0 mg/dL (1.6-2.6) Triglycerides Level 86 mg/dL (< 150) Cholesterol Level 213 mg/dL (< 200) LDL Cholesterol 109 mg/dL (< 100) HDL Cholesterol 93 mg/dL (40-59) Thyroid Stimulating Hormone (TSH) 1.96 uIU/mL (0.55-4.78) Direct Bilirubin 0.2 mg/dL (<0.3) Other Laboratory Tests 07/03/25 05:35 Final Diagnosis/Problems List 1.Chest pain CA ruled out 2.Costochondritis 3. Hypertension 4. Lupus Discharge Disposition: Home SNF Discharge Will this Physician continue t: No Discharge Instruct/Medications Diet: Cardiac 2g Na,low cholest Activity: No Restrictions, As Tolerated Follow Up/Referral: Please follow up with the PCP in 1-2 weeks Follow upWith the Cardiology for outpatient stress test if indicated. Medications: Resume home medications. Scheduled Artificial Tear Solution (Artificial Tears), 1 DROP EACHEYE QID, (Reported) Aspirin (Aspir-Low), 81 MG PO DAILY, (Reported) Benazepril HCl (Benazepril Hydrochloride), 10 MG PO DAILY, (Reported) Cetirizine Hcl (Kls Aller-Marija), 5 MG PO DAILY, (Reported) Cholecalciferol (Vitamin D3), 1 TAB PO DAILY, (Reported) Colchicine (Colchicine), 0.6 MG PO DAILY, (Reported) Colchicine (Colchicine), 0.6 MG PO Q12HR, (Reported) Folic Acid (Folic Acid), 1 MG PO DAILY, (Reported) Hydroxychloroquine Sulfate (Hydroxychloroquine Sulfat), 200 MG PO BID, (Reported) Lorazepam (Ativan), 1 TAB PO DAILY, (Reported) Omeprazole (Cvs Omeprazole), 20 MG PO DAILY, (Reported) Ondansetron (Zofran), 4 MG PO BID Oxycodone W/ Acetaminophen (Percocet 5/325MG), 1 TAB PO BID Primidone (Mysoline Tablet), 50 MG PO HS, (Reported) Scheduled PRN Ibuprofen (Motrin), 400 MG GT TID PRN Miscellaneous Medications Albuterol Sulfate (Ventolin Mdi), 90 MCG IN, (Reported) Cholecalciferol (Vitamin D), (Reported) Discharge Statement: "Patient was advised to return to the ER or call 911 if any headaches, dizziness, shortness of breath, chest pain, abdominal pain, bleeding, fevers, or worsening of medical condition. Patient was counseled about treatment plan, medications, possible side effects, patientverbalized understanding. All questions were answered to the best of my ability. This discharge took greater then 30 minutes in planning, reviewing documentation, counseling the patient, and discussing with other team members." ASSESSMENT ASSESSMENT Assessment 1.Chest pain CA ruled out 2.Costochondritis 3. Hypertension 4. Lupus INNA RUIZ MD Jul 03, 2025 16:38
--- NOTE | 2025-07-03 17:45 | DVHSR ---
APPROVED REPORT EXAM: Two-dimensional and M-mode echocardiogram with Doppler and color Doppler. Blood Pressure: 131/73 mmHg INDICATION ACS RISK FACTORS Obesity: Height: 63, Weight: 182 DIMENSIONS LVDd 4.7 (3.8-5.7cm) LA (2D) 4.1 (1.9-4.0cm) Aortic Root 2.9 (2.0-3.7cm) LVDs 2.9 (2.5-4.0cm) LA (MM) (1.9-4.0cm) Aortic Cusp Exc 1.1 (1.5-2.0cm) EF (%) 60.0 (55-70%) Rt. Atrium 3.7 (1.9-4.0cm) Asc. Aorta cm IVSd 0.9 (0.7-1.1cm) RV (D) 3.2 (1.8-2.4cm) PWd 1.0 (0.7-1.1cm) Mitral Valve Mitral Mitral Stenosis E wave 0.77m/s MV Mean GR. mmHg A wave 0.84m/s MV Peak GR. mmHg E/A ratio 0.9 2D MVA cm2 DECEL Time 293ms PRESS 1/2 Time ms Aortic Valve Aortic Valve Aortic Stenosis V1 1.14m/s AO Mean GR. 7mmHg V2 1.70m/s AO Peak GR. 12mmHg LVOT Diameter 2.0 (1.8-2.4cm) Doppler LUCAS 2.11cm2 Pulmonic Valve V2 0.90m/s Tricuspid Valve TR Velocity 1.92m/s RVSP 21mmHg Conclusion Sinus rhythm. Aortic root enlargement. Mild left atrial enlargement. Mitral annular calcification thickening of the base of the posterior mitral leaflet. Good excursion of the leaflets. The tricuspid and pulmonic normal. Left ventricular function is preserved at 65% with normal RV function. Doppler reveals no significant regurgitant jets. Mild TR. No pericardial effusion masses or vegetations.
[2025-07-04] VITALS (14 sets, daily range): BP systolic 101–166; BP diastolic 55–87; PULSE 55–75; RESP 14–17; TEMP 36.6; O2SAT 92–100
--- NOTE | 2025-07-04 11:22 | DVHINCON2 ---
Date Seen: Jul 04, 2025 Referring Physician MD Sadi Reason for Consultation Chest pain History of Present Illness This is a 74-year-old female patient who presents to the emergency room with chief complaint of chest pain. The patient reports that the chest pain began at approximately 1:30 a.m. on the day of emergency room arrival while she was asleep. She describes it as unprovoked, intermittent, pressure-like in nature, left-sided and nonradiating. Associated symptoms include shortness of breath. The patient reports that she believed it was acid reflux so she took two Shae- [place] pills with no relief. She states that she fell back asleep and when she woke up again the pain was still present which prompted her to come to the emergency room for further evaluation. Initial twelve lead electrocardiogram reveals normal sinus rhythm without any significant ST segment changes. Serial troponin levels have been negative. Significant past medical history includes hypertension, dyslipidemia, lupus, rheumatoid and osteoarthritis, CVA x2, right eye partial blindness, asthma, and obesity. The patient reports undergoing a stress test approximately three years ago and has not followed up with a staff pharmacist hospital since then. Past Medical History Past medical history reviewed. No other significant than mentioned above. Past Surgical History Right knee replacement Hysterectomy Right breast lumpectomy Family History: Cancer G8 MOTHER (BREAST) FH: dementia G8 MOTHER Family history: Diabetes mellitus G8 BROTHER G8 SISTER Family History Family history reviewed. Social History Denies the use of tobacco, alcohol or illicit drugs. Allergies: Coded Allergies: Tramadol (Verified Allergy, Unknown, 01/25/17) Home Meds Active Scripts Ibuprofen (Motrin) 100 Mg/5 Ml Ud, 400 MG GT TID PRN for 7 Days, #30 UNIT Prov:ANGELINA ELLER MD 09/28/21 Ondansetron (Zofran) 4 Mg Tab, 4 MG PO BID for 5 Days, #10 MG Prov:DOMI HILL MD 06/05/21 Oxycodone W/ Acetaminophen (Percocet 5/325MG) 1 Tab Tb, 1 TAB PO BID, #10 TAB Prov:DOMI HILL MD 06/05/21 Reported Medications Primidone (MYSOLINE TABLET) 50 Mg Tb, 50 MG PO HS, TAB 07/02/25 Benazepril HCl (Benazepril Hydrochloride) 10 Mg Tab, 10 MG PO DAILY, TAB 07/02/25 Aspirin (Aspir-Low) 81 Mg Tab, 81 MG PO DAILY for 30 Days, MG 07/02/25 Colchicine (Colchicine) Pow, 0.6 MG PO Q12HR for 30 Days, MG 07/02/25 Cholecalciferol (VITAMIN D3) 2,000 Unit Tab, 1 TAB PO DAILY, #30 TAB 5 Refills 07/02/25 Artificial Tear Solution (ARTIFICIAL TEARS) Tears Brandi, 1 DROP EACHEYE QID, #30 ML 5 Refills 02/18/19 Albuterol Sulfate (VENTOLIN MDI) 90 Mcg Ih, 90 MCG IN 02/18/19 Cetirizine Hcl (Kls Aller-Marija) 10 Mg Tab, 5 MG PO DAILY, TAB 02/18/19 Lorazepam (Ativan) 0.5 Mg Tab, 1 TAB PO DAILY, #30 TAB 01/25/17 Colchicine (Colchicine) Pow, 0.6 MG PO DAILY, MG 01/25/17 Folic Acid (Folic Acid) 1 Mg Tab, 1 MG PO DAILY, #90 08/10/14 Cholecalciferol (Vitamin D) 2,000 Unit Tab, #60 08/10/14 Omeprazole (Cvs Omeprazole) 20 Mg Tab, 20 MG PO DAILY, #30 08/10/14 Hydroxychloroquine Sulfate (Hydroxychloroquine Sulfat) 200 Mg Tab, 200 MG PO BID, #60 08/10/14 Home Meds Home medications reviewed. Review of Systems Constitutional: No symptom reported Ears, Nose, & Throat: No symptom reported Eyes: No symptom reported Neurological: No symptoms reported Pulmonary/Respiratory: Shortness of breath Cardiovascular: Chest pain Gastrointestinal: No symptom reported Genitourinary: No symptom reported Musculoskeletal: No symptom reported Skin: No symptom reported Psychiatric: No symptom reported Endocrine: No symptom reported Hematologic/Lymphatic: No symptom reported Vital Signs Vital Signs Date Time Temp Pulse Resp B/P (MAP) Pulse Ox O2 Delivery O2 Flow Rate FiO2 07/04/25 09:00 98.1 67 17 123/66 (85) 97 98.1 07/04/25 08:00 Room Air* 0 21 Physical Exam General Appearance: Cooperative. Well-developed. Well-nourished. No acute distress. Pulmonary/Respiratory: Clear, bilateral breaths sounds. Cardiovascular/Chest: Regular rate and rhythm. Peripheral Pulses: 2+ Radial (R). 2+ Radial (L). 2+ Pedal (R). 2+ Pedal (L) Abdominal Exam: Normal bowel sounds. Ankle Exam: Negative ankle edema Lower extremities: Negative lower extremity edema Neuro/Mental Status: A/OX4, coherent. Thoughts/Psych: Normal thought pattern. Appropriate mood and affect. Good judgment and insight. Appearance: No acute distress. Skin Exam: Normal inspection. Normal color. Warm and dry. Labs/Diagnostic Data Labs Test 07/03/25 05:35 07/02/25 13:06 07/02/25 11:19 07/02/25 10:04 Range/Units White Blood Count 3.7 L 4.4-10.8 10^3/uL Red Blood Count 4.34 4.0-5.20 10^6/uL Hemoglobin 13.3 12.2-16.2 g/dL Hematocrit 39.5 36.0-46.0 % Mean Corpuscular Volume 91.0 80.0-100.0 fL Mean Corpuscular Hemoglobin 30.6 28.0-32.0 pg Mean Corpuscular Hemoglobin Concent 33.6 32.0-36.0 g/dL Red Cell Distribution Width 14.9 H 11.8-14.3 % Platelet Count 111 L 140-450 10^3/uL Mean Platelet Volume 9.4 6.9-10.8 fL Neutrophils (%) (Auto) 48.2 37.0-80.0 % Lymphocytes (%) (Auto) 38.5 10.0-50.0 % Monocytes (%) (Auto) 11.5 0.0-12.0 % Eosinophils (%) (Auto) 1.3 0.0-7.0 % Basophils (%) (Auto) 0.5 0.0-2.0 % Neutrophils # (Auto) 1.8 1.6-8.6 10 ^3/uL Lymphocytes # (Auto) 1.4 0.4-5.4 10 ^3/uL Monocytes # (Auto) 0.4 0-1.3 10 ^3/uL Eosinophils # (Auto) 0 0-0.8 10 ^3/uL Basophils # (Auto) 0 0-0.2 10 ^3/uL Nucleated Red Blood Cells 0.1 % Sodium Level 142 136-145 mmol/L Potassium Level 4.5 3.5-5.1 mmol/L Chloride Level 107 98-107 mmol/L Carbon Dioxide Level 25 20-31 mmol/L Anion Gap 10 5-15 Blood Urea Nitrogen 13 9-23 mg/dL Creatinine 0.83 0.550-1.02 mg/dL Glomerular Filtration Rate Calc 74 >90 mL/min BUN/Creatinine Ratio 15.7 10.0-20.0 Serum Glucose 81 74-106 mg/dL Calcium Level 9.4 8.7-10.4 mg/dL Total Bilirubin 0.9 0.2-1.0 mg/dL Aspartate Amino Transferase (AST) 26 13-40 U/L Alanine Aminotransferase (ALT) 27 7-40 U/L Alkaline Phosphatase 113 46-116 U/L Total Protein 6.1 5.7-8.2 g/dL Albumin 3.9 3.2-4.8 g/dL Prothrombin Time 10.3 9.3-11.8 sec Prothrombin Time INR 0.97 0.9-1.15 Activated Partial Thromboplast Time 26.9 24.5-34.5 SEC Hemoglobin A1c 5.4 <5.7 % A1C Troponin I High Sensitivity 7 </=34 ng/L Vitamin B12 Level 501 211-911 pg/mL Vitamin D 25-Hydroxy 52.7 30.0-100 ng/mL Phosphorus Level 3.4 2.4-5.1 mg/dL Magnesium Level 2.0 1.6-2.6 mg/dL Triglycerides Level 86 < 150 mg/dL Cholesterol Level 213 H < 200 mg/dL LDL Cholesterol 109 H < 100 mg/dL HDL Cholesterol 93 H 40-59 mg/dL Thyroid Stimulating Hormone (TSH) 1.96 0.55-4.78 uIU/mL Direct Bilirubin 0.2 <0.3 mg/dL Assessment Chest pain, rule out coronary ischemia Hypertension Dyslipidemia Lupus Rheumatoid and osteoarthritis CVA x2 Asthma Obesity Plan/Recommendation We will continue with the following plan/recommendations (Dr. Burton): * Transthoracic echocardiogram reveals an EF of 65% * Chest pain protocol * HEART score: 4 points (moderate score) * Single antiplatelet therapy and lipid-lowering agent * Close cardiac surveillance * Nuclear stress test Given the patient's clinical presentation and comorbidities, the patient was offered a nuclear stress test (she states that she is unable to undergo treadmill stress test). We will schedule the patient to undergo a nuclear stress test at soonest availability. Thank you for allowing us to care for this patient. Please call with any questions or concerns. Critical care time spent: 44 minutes This medical document was created using an electronic medical record system with voice recognition software and computerized dictation system. Although this document has been carefully reviewed, there might still be some phonetic and typographical errors. Occasional wrong-word or ``sound-alike substitutions may have occurred due to the inherent limitations of voice recognition software. These areas are purely typographical due to imperfections of the software programs and do not reflect any compromise in the patient's medical care. Please read the chart carefully and recognize, using context, where these substitutions have occurred. Plan discussed with: Patient NYHA Physical activity limitations: NA Date of Service: Jul 04, 2025 Billing Provider: SARA NAIDU Cardiology Common Codes: 94004-[id number] INP/OBS CARE (High) Cardiology Consultation Codes: [id number] CONSULT <45MIN SARA NAIDU Jul 04, 2025 11:22
[2025-07-04] MEDS: REGADENOSON 0.4 MG/5 ML SYRG IV ONE ×2 (13:26)
--- NOTE | 2025-07-04 14:55 | DVHPN2 ---
Subjective Overnight events noted. Changes from previous H/P or p: No Changes Objective Vitals Vital Signs Date Time Temp Pulse Resp B/P (MAP) Pulse Ox O2 Delivery O2 Flow Rate FiO2 07/04/25 09:00 98.1 67 17 123/66 (85) 97 98.1 07/04/25 08:00 Room Air* 0 21 Intake/Output Intake and Output 07/04/25 07:00 Intake Total 625 ml Balance 625 ml Intake Oral 625 ml # Voids 8 # Bowel Movements 1 Medications Current Medications Medications Dose Ordered Sig/Trena Route Start Time Stop Time Status Last Admin Dose Admin Acetaminophen 325 mg Q4HP PRN PO 07/02/25 14:45 07/04/25 05:15 325 MG Ondansetron HCl 4 mg Q4HP PRN IV 07/02/25 14:45 Morphine Sulfate 2 mg Q4HPRN PRN IV 07/02/25 14:45 Enoxaparin Sodium 40 mg DAILY SC 07/03/25 10:00 07/04/25 09:45 40 MG Nitroglycerin 0.4 mg Q5MINP PRN SL 07/02/25 14:45 Morphine Sulfate 2 mg Q30M PRN IV 07/02/25 14:45 Aspirin 81 mg DAILY PO 07/03/25 10:00 07/04/25 09:45 81 MG Atorvastatin Calcium 40 mg HS PO 07/02/25 22:00 07/03/25 22:34 40 MG Hydroxychloroquine Sulfate 200 mg BID PO 07/02/25 22:00 07/04/25 09:46 200 MG Ibuprofen 400 mg TID PRN GT 07/02/25 15:00 Artificial Tears 1 drop QID EACHEYE 07/02/25 18:00 07/04/25 09:49 1 DROP Folic Acid 1 mg DAILY PO 07/03/25 10:00 07/04/25 09:54 1 MG Pantoprazole Sodium 40 mg DAILY PO 07/03/25 10:00 07/04/25 09:45 40 MG Patient Own Medication 4 mg BID PO 07/02/25 22:00 UNV Albuterol 2.5 mg Q6HR NEB 07/02/25 18:00 07/04/25 07:32 2.5 MG Laboratory Results Laboratory Tests 07/03/25 05:35 Assessment/Plan Assessment/Plan 1.Chest pain LA ruled out 2.Costochondritis 3. Hypertension 4. Lupus -currently on pain meds as needed, Cardiolite stress test. Plan discussed with: Patient, Other My Orders Orders - INNA RUIZ MD Procedure Category Date Status Time Discharge DISCHARGE 07/03/25 Transmitted 16:36 * Cardiology Consult CONS 07/04/25 Transmitted 03:14 Cardiac DIET 07/04/25 Transmitted Diet-2gna,Lofat,Lochol Dinner Date of Service: Jul 03, 2025 Billing Provider: INNA RUIZ MD Common Visit Codes: [id number] INP/OBS CARE(HIGH) INNA RUIZ MD Jul 04, 2025 14:55
--- NOTE | 2025-07-04 14:55 | DVHDS2 ---
Discharge Summary Date of Admission Jul 02, 2025 at 14:45 Date of Discharge: Jul 04, 2025 Labs/Diagnostic Data: Laboratory Results Test 07/03/25 05:35 07/02/25 13:06 07/02/25 11:19 07/02/25 10:04 White Blood Count 3.7 10^3/uL (4.4-10.8) Red Blood Count 4.34 10^6/uL (4.0-5.20) Hemoglobin 13.3 g/dL (12.2-16.2) Hematocrit 39.5 % (36.0-46.0) Mean Corpuscular Volume 91.0 fL (80.0-100.0) Mean Corpuscular Hemoglobin 30.6 pg (28.0-32.0) Mean Corpuscular Hemoglobin Concent 33.6 g/dL (32.0-36.0) Red Cell Distribution Width 14.9 % (11.8-14.3) Platelet Count 111 10^3/uL (140-450) Mean Platelet Volume 9.4 fL (6.9-10.8) Neutrophils (%) (Auto) 48.2 % (37.0-80.0) Lymphocytes (%) (Auto) 38.5 % (10.0-50.0) Monocytes (%) (Auto) 11.5 % (0.0-12.0) Eosinophils (%) (Auto) 1.3 % (0.0-7.0) Basophils (%) (Auto) 0.5 % (0.0-2.0) Neutrophils # (Auto) 1.8 10 ^3/uL (1.6-8.6) Lymphocytes # (Auto) 1.4 10 ^3/uL (0.4-5.4) Monocytes # (Auto) 0.4 10 ^3/uL (0-1.3) Eosinophils # (Auto) 0 10 ^3/uL (0-0.8) Basophils # (Auto) 0 10 ^3/uL (0-0.2) Nucleated Red Blood Cells 0.1 % Sodium Level 142 mmol/L (136-145) Potassium Level 4.5 mmol/L (3.5-5.1) Chloride Level 107 mmol/L (98-107) Carbon Dioxide Level 25 mmol/L (20-31) Anion Gap 10 (5-15) Blood Urea Nitrogen 13 mg/dL (9-23) Creatinine 0.83 mg/dL (0.550-1.02) Glomerular Filtration Rate Calc 74 mL/min (>90) BUN/Creatinine Ratio 15.7 (10.0-20.0) Serum Glucose 81 mg/dL (74-106) Calcium Level 9.4 mg/dL (8.7-10.4) Total Bilirubin 0.9 mg/dL (0.2-1.0) Aspartate Amino Transferase (AST) 26 U/L (13-40) Alanine Aminotransferase (ALT) 27 U/L (7-40) Alkaline Phosphatase 113 U/L (46-116) Total Protein 6.1 g/dL (5.7-8.2) Albumin 3.9 g/dL (3.2-4.8) Prothrombin Time 10.3 sec (9.3-11.8) Prothrombin Time INR 0.97 (0.9-1.15) Activated Partial Thromboplast Time 26.9 SEC (24.5-34.5) Hemoglobin A1c 5.4 % A1C (<5.7) Troponin I High Sensitivity 7 ng/L (</=34) Vitamin B12 Level 501 pg/mL (211-911) Vitamin D 25-Hydroxy 52.7 ng/mL (30.0-100) Phosphorus Level 3.4 mg/dL (2.4-5.1) Magnesium Level 2.0 mg/dL (1.6-2.6) Triglycerides Level 86 mg/dL (< 150) Cholesterol Level 213 mg/dL (< 200) LDL Cholesterol 109 mg/dL (< 100) HDL Cholesterol 93 mg/dL (40-59) Thyroid Stimulating Hormone (TSH) 1.96 uIU/mL (0.55-4.78) Direct Bilirubin 0.2 mg/dL (<0.3) Other Laboratory Tests 07/03/25 05:35 Brief Hx & Hospital Course: 74-year-old female with a known history of hypertension, history of systemic lupus erythematosus who initially presented to hospital with chest pain eventually patient was admitted. Patient's troponins were negative. Patient was scheduled for Cardiolite stress test which was negative for any reversible ischemia. Patient's is cleared by Cardiology to be discharged. Patient is being discharged under stable condition. Patient's chest pain is atypical likely costochondritis. Condition at Discharge: Stable Final Diagnosis/Problems List 1.Chest pain DC ruled out 2.Costochondritis 3. Hypertension 4. Lupus Discharge Disposition: Home SNF Discharge Will this Physician continue t: No Discharge Instruct/Medications Diet: Cardiac 2g Na,low cholest Activity: No Restrictions, As Tolerated Follow Up/Referral: Please follow up with the PCP in 1-2 weeks Follow upWith the Cardiology for outpatient stress test if indicated. Medications: Resume home medications. Continued Medications: Albuterol Sulfate (Ventolin Mdi) 90 Mcg Ih 90 MCG IN Artificial Tear Solution (Artificial Tears) Tears Brandi 1 DROP EACHEYE QID, #30 ML 5 Refills Aspirin (Aspir-Low) 81 Mg Tab 81 MG PO DAILY for 30 Days, MG Benazepril HCl (Benazepril Hydrochloride) 10 Mg Tab 10 MG PO DAILY, TAB Cetirizine Hcl (Kls Aller-Marija) 10 Mg Tab 5 MG PO DAILY, TAB Cholecalciferol (Vitamin D) 2,000 Unit Tab #60 Cholecalciferol (Vitamin D3) 2,000 Unit Tab 1 TAB PO DAILY, #30 TAB 5 Refills Colchicine (Colchicine) Pow 0.6 MG PO DAILY, MG Colchicine (Colchicine) Pow 0.6 MG PO Q12HR for 30 Days, MG Folic Acid (Folic Acid) 1 Mg Tab 1 MG PO DAILY, #90 Hydroxychloroquine Sulfate (Hydroxychloroquine Sulfat) 200 Mg Tab 200 MG PO BID, #60 Ibuprofen (Motrin) 100 Mg/5 Ml Ud 400 MG GT TID PRN for 7 Days, #30 UNIT Lorazepam (Ativan) 0.5 Mg Tab 1 TAB PO DAILY, #30 TAB Omeprazole (Cvs Omeprazole) 20 Mg Tab 20 MG PO DAILY, #30 Ondansetron (Zofran) 4 Mg Tab 4 MG PO BID for 5 Days, #10 MG Oxycodone W/ Acetaminophen (Percocet 5/325MG) 1 Tab Tb 1 TAB PO BID, #10 TAB Primidone (Mysoline Tablet) 50 Mg Tb 50 MG PO HS, TAB Scheduled Artificial Tear Solution (Artificial Tears), 1 DROP EACHEYE QID, (Reported) Aspirin (Aspir-Low), 81 MG PO DAILY, (Reported) Benazepril HCl (Benazepril Hydrochloride), 10 MG PO DAILY, (Reported) Cetirizine Hcl (Kls Aller-Marija), 5 MG PO DAILY, (Reported) Cholecalciferol (Vitamin D3), 1 TAB PO DAILY, (Reported) Colchicine (Colchicine), 0.6 MG PO DAILY, (Reported) Colchicine (Colchicine), 0.6 MG PO Q12HR, (Reported) Folic Acid (Folic Acid), 1 MG PO DAILY, (Reported) Hydroxychloroquine Sulfate (Hydroxychloroquine Sulfat), 200 MG PO BID, (Reported) Lorazepam (Ativan), 1 TAB PO DAILY, (Reported) Omeprazole (Cvs Omeprazole), 20 MG PO DAILY, (Reported) Ondansetron (Zofran), 4 MG PO BID Oxycodone W/ Acetaminophen (Percocet 5/325MG), 1 TAB PO BID Primidone (Mysoline Tablet), 50 MG PO HS, (Reported) Scheduled PRN Ibuprofen (Motrin), 400 MG GT TID PRN Miscellaneous Medications Albuterol Sulfate (Ventolin Mdi), 90 MCG IN, (Reported) Cholecalciferol (Vitamin D), (Reported) Discharge Statement: "Patient was advised to return to the ER or call 911 if any headaches, dizziness, shortness of breath, chest pain, abdominal pain, bleeding, fevers, or worsening of medical condition. Patient was counseled about treatment plan, medications, possible side effects, patientverbalized understanding. All questions were answered to the best of my ability. This discharge took greater then 30 minutes in planning, reviewing documentation, counseling the patient, and discussing with other team members." ASSESSMENT ASSESSMENT Assessment 1.Chest pain DC ruled out 2.Costochondritis 3. Hypertension 4. Lupus Date of Service: Jul 04, 2025 Billing Provider: INNA RUIZ MD Common Visit Codes: [id number] DISCH DAY >30min INNA RUIZ MD Jul 04, 2025 14:55
--- NOTE | 2025-07-04 16:54 | DVHSR ---
APPROVED REPORT Exam: Nuclear Stress Test BMI: 0 Stress Test Details HR Max Heart Rate (APMHR): 146.475969 bpm Target HR (85% APMHR): 124.715286 bpm BP ECG Stress ECG Conclusion lvef 71% minor inferior wall defect noted, clinical correlate no sever ischemia is noted NM EXAM: Myocardial Perfusion REST/STRESS Imaging Protocol: Rest Tc-99m/Stress Tc-99m 1 day Resting Data Rest SPECT myocardial perfusion imaging was performed in supine position 60 minutes following the intravenous injection of 11.5 mCi of Tc-99m Sestamibi. Time of rest injection: 12:48 Date: 07/04/2025 Time of rest imagin:48 Date: 07/04/2025 Administration Route: IV Administration Site: Right Arm Pharmacologic Stress Pharmacologic stress test was performed by injecting Regadenoson 0.4 mg IV push followed by the intravenous injection of 29.2 mCi of Tc-99m Sestamibi. Time of stress injection: 13:20 Date: 07/04/2025 Time of stress imagin:20 Date: 07/04/2025 Administration Route: IV Administration Site: Right Arm Gated Stress SPECT was performed 60 minutes after stress injection. The images were gated to evaluate regional wall motion and calculate left ventricular ejection fraction. Stress only was performed in the Supine position. Nuclear Conclusion Nuclear Findings: negative for ischemia lvef 71% minor inferior wall defect noted, clinical correlate no sever ischemia is noted
== END 2025-07-04 18:06 | disposition home or self-care (01) | DRG 206 ==
LOC: ER 09:50 → OVERFLOW 14:45 → TELE-EAST 18:10
PROVIDERS: ADMIT Internal Medicine; ATTEND Internal Medicine
DX: M94.0 Chondrocostal junction syndrome [Tietze] (principal); D69.6 Thrombocytopenia, unspecified; M35.00 Sjogren syndrome, unspecified; J45.909 Unspecified asthma, uncomplicated; I10 Essential (primary) hypertension; E66.9 Obesity, unspecified; M06.9 Rheumatoid arthritis, unspecified; E78.5 Hyperlipidemia, unspecified; F41.9 Anxiety disorder, unspecified; M10.9 Gout, unspecified; M81.0 Age-related osteoporosis without current pathological fracture; G25.0 Essential tremor; M32.9 Systemic lupus erythematosus, unspecified; K21.9 Gastro-esophageal reflux disease without esophagitis; Z86.73 Personal history of transient ischemic attack (TIA), and cerebral infarction without residual deficits; Z79.1 Long term (current) use of non-steroidal anti-inflammatories (NSAID); Z79.899 Other long term (current) drug therapy; Z87.891 Personal history of nicotine dependence; Z90.710 Acquired absence of both cervix and uterus; Z96.651 Presence of right artificial knee joint; Z80.3 Family history of malignant neoplasm of breast; Z88.5 Allergy status to narcotic agent; Z83.3 Family history of diabetes mellitus; Z68.32 Body mass index [BMI] 32.0-32.9, adult
CPT/HCPCS: 36415; 71046; 71111; 78452; 80048; 80053; 80061; 80076; 82306; 82607; 83036; 83735; 84100; 84443; 84484; 85025; 85610; 85730; 93005; 93017; 93306; 94640; 96374; G0378